=== PATIENT | female | born 1980 | race Caucasian/White ===

== ENCOUNTER 2022-09-25 09:18 | Inpatient (IN) | payer MEDICAID ==
[~2022-09-25] VITALS: Ht 160 cm; Wt 74.8 kg
[2022-09-25 09:25] VITALS: BP 122/66
[2022-09-25] MEDS ORDERED: NACL 0.9% 1,000 ML IV SCH (09:50)
[2022-09-25] MEDS ORDERED: MORPHINE SULFATE 4 MG/ML SYR IVP ONE (09:50)
[2022-09-25] MEDS ORDERED: ONDANSETRON 4 MG/2 ML VIAL IVP ONE (09:50)
[2022-09-25 10:13] LABS: BASOPHILS # (AUTO) 0.2 K/uL (0.00-0.22); BASOPHILS % (AUTO) 1.1 % (0.0-2.0); EOSINOPHILS # (AUTO) 0.2 K/uL (0-0.4); EOSINOPHILS % (AUTO) 1.6 % (0.0-4.0); HEMATOCRIT 41.4 % (36-48); HEMOGLOBIN 14.1 g/dL (12.0-16.0); LYMPHOCYTES # (AUTO) 3.3 K/uL (2.5-16.5); MEAN CORPUSCULAR HEMOGLOBIN 29 pg (27-31); MEAN CORPUSCULAR HGB CONC 34 g/dL (33-37); MEAN CORPUSCULAR VOLUME 84.9 fL (80-94); MONOCYTES # (AUTO) 0.9 K/uL (0.8-1.0); MONOCYTES % (AUTO) 6.3 % (1.7-9.3); NEUTROPHILS # (AUTO) 9.7 K/uL (1.8-7.7); PLATELET COUNT (AUTO) 382 K/uL (140-450); RED BLOOD CELL COUNT(AUTO) 4.88 MIL/uL (4.20-5.40); RED CELL DISTRIBUTION WIDTH 13.7 % (11.6-13.7); WHITE BLOOD COUNT (AUTO) 14.2 K/uL (4.8-10.8)
[2022-09-25 10:29] LABS: ANION GAP 13.1 (8-16); CARBON DIOXIDE 23.1 mmol/L (21-32); CREATININE 0.7 mg/dL (0.6-1.3); POTASSIUM 4.2 mmol/L (3.5-5.1); TOTAL BILIRUBIN 0.2 mg/dL (0.0-1.0)
[2022-09-25 11:04] LABS: APPEARANCE,URINE CLEAR (CLEAR); BILIRUBIN,URINE NEGATIVE (NEGATIVE); BLOOD, URINE 2+ (NEGATIVE); COLOR,URINE YELLOW (YELLOW); LEUKOCYTE ESTERASE ,URINE 1+ (NEGATIVE); NITRITE, URINE NEGATIVE (NEGATIVE); UGLUCOSE NEGATIVE (NEGATIVE)
[2022-09-25 11:39] LABS: RBC,URINE 0-5 /HPF (0-5)
[2022-09-25 11:40] LABS: TRICHOMONAS,URINE None Seen /HPF (None Seen); YEAST,URINE None Seen /HPF (None Seen)
[2022-09-25] MEDS ORDERED: metroNIDAZOLE 500 MG/NS PREMIX 100 ML IV ONE (11:50)
[2022-09-25] MEDS ORDERED: cefTRIAXone 1,000 MG in DEXT 5% MINI-BAG PLUS 50 ML IV ONE (11:50)
[2022-09-25] MEDS ORDERED: ACETAMINOPHEN 325 MG TAB PO PRN (12:00)
[2022-09-25] MEDS ORDERED: MAG SULF 2000 MG/WATER PREMIX 50 ML IV PRN (12:00)
[2022-09-25] MEDS ORDERED: ZOLPIDEM 10 MG TAB PO PRN (12:00)
[2022-09-25] MEDS ORDERED: MORPHINE SULFATE 2 MG/ML SYR IVP PRN (12:00)
[2022-09-25] MEDS ORDERED: DOCUSATE SODIUM 100 MG GELCAP PO PRN (12:00)
[2022-09-25] MEDS ORDERED: LORazepam 2 MG/ML VIAL IVP PRN (12:00)
[2022-09-25] MEDS ORDERED: POTASSIUM CHLORIDE 10 MEQ TABER PO PRN (12:00)
[2022-09-25] MEDS ORDERED: ONDANSETRON 4 MG/2 ML VIAL IVP PRN (12:00)
--- NOTE | 2022-09-25 12:00 | NUR ---
PT IS AAOX4, CALM AND COOPERATIVE, VERBALLY RESPONSIVE, AND SHOWS NO SIGNS OF ACUTE RESP DISTRESS. PT. IS AMBULATORY TO THE BATHROOM
[2022-09-25] MEDS ORDERED: cefTRIAXone 1,000 MG VIAL ONE (12:05)
[2022-09-25] MEDS: NACL 0.9% 1,000 ML IV SCH (13:00)
--- NOTE | 2022-09-25 14:00 | NUR ---
PT IS AAOX4, CALM AND COOPERATIVE, VERBALLY RESPONSIVE, AND SHOWS NO SIGNS OF ACUTE RESP DISTRESS. PT DENIES ANY PAIN AT THIS TIME.
[2022-09-25] MEDS ORDERED: HYDR-5080 PO (14:19)
[2022-09-25] MEDS ORDERED: ONDA-188 PO (14:19)
--- NOTE | 2022-09-25 18:13 | NUR ---
DR. BEACH AT BEDSIDE.
--- NOTE | 2022-09-25 18:25 | NUR ---
SURGEON AT THE BEDSIDE AND STATES THAT THE PATIENT WILL BE HAVING SURGERY TOMORROW MORNING. PT IS INSTRUCTED THAT SHE WILL BE NPO AT MIDNIGHT. PT VERBALIZED UNDERSTANDING.
--- NOTE | 2022-09-25 19:18 | NUR ---
REPORT GIVEN TO BLAYNE SIDDIQUI FOR CONTINUITY OF CARE.
--- NOTE | 2022-09-25 19:19 | NUR ---
ASSUMED CARE OF PT AT THIS TIME.
--- NOTE | 2022-09-25 19:36 | NUR ---
HANDOFF GIVEN TO BLAYNE MESA. TX OF CARE.
--- NOTE | 2022-09-25 20:00 | NUR ---
RESTING COMFORTABLY, VOICES NO COMPLAINTS AT THIS TIME
--- NOTE | 2022-09-25 21:35 | NUR ---
REPORT CALLED MARIELA PARKS RN
--- NOTE | 2022-09-25 21:50 | NUR ---
RECEIVED PATIENT FROM ER NURSE VIA WHEELCHAIR. PATIENT IS ALERT ORIENTES X 4. PIV 0N LEFT HAND 20 G INTACT AND PATENT. NO COMPLAIN OF PAIN AT THIS TIME
--- NOTE | 2022-09-25 21:52 | NUR ---
TO MST VIA W/C
[2022-09-26] VITALS (7 sets, daily range): BP systolic 99–123; BP diastolic 55–71
--- NOTE | 2022-09-26 | NUR ---
PATIENT SLEEPING COMFORTABLY IN BED, NO DISTRESS NOTED. NPO ORDER IN EFFECT
[2022-09-26] MEDS: NACL 0.9% 1,000 ML IV SCH ×3 (00:49→18:00)
[2022-09-26 06:02] LABS: BASOPHILS # (AUTO) 0.1 K/uL (0.00-0.22); BASOPHILS % (AUTO) 0.7 % (0.0-2.0); EOSINOPHILS # (AUTO) 0.2 K/uL (0-0.4); EOSINOPHILS % (AUTO) 2.4 % (0.0-4.0); HEMATOCRIT 35.5 % (36-48); HEMOGLOBIN 12.1 g/dL (12.0-16.0); LYMPHOCYTES # (AUTO) 2.8 K/uL (2.5-16.5); LYMPHOCYTES % (AUTO) 30.8 % (20.5-51.1); MEAN CORPUSCULAR HEMOGLOBIN 29 pg (27-31); MEAN CORPUSCULAR HGB CONC 34 g/dL (33-37); MEAN CORPUSCULAR VOLUME 84.6 fL (80-94); MONOCYTES # (AUTO) 0.7 K/uL (0.8-1.0); MONOCYTES % (AUTO) 7.8 % (1.7-9.3); NEUTROPHILS # (AUTO) 5.3 K/uL (1.8-7.7); NEUTROPHILS % (AUTO) 58.3 % (42.2-75.2); PLATELET COUNT (AUTO) 323 K/uL (140-450); RED CELL DISTRIBUTION WIDTH 13.7 % (11.6-13.7); WHITE BLOOD COUNT (AUTO) 9.1 K/uL (4.8-10.8)
[2022-09-26 06:20] LABS: ANION GAP 12.3 (8-16); CARBON DIOXIDE 24.8 mmol/L (21-32); CREATININE 0.7 mg/dL (0.6-1.3); POTASSIUM 4.1 mmol/L (3.5-5.1)
--- NOTE | 2022-09-26 07:05 | NUR ---
PT. TRANSPORTED TO OR VIA GURNEY FOR PROCEDURE.
--- NOTE | 2022-09-26 07:14 | NUR ---
ENDORSED PT TO AM NURSE FOR CONTINUITY OF CARE. PT IS STABLE
[2022-09-26] MEDS ORDERED: BUPIVACAINE-MPF 0.25% 30 ML VIAL INJ ONE (07:19)
[2022-09-26] MEDS ORDERED: LIDOCAINE 1% 500 MG/50 ML VIAL ONE (07:19)
[2022-09-26] MEDS ORDERED: BUPIVACAINE-MPF/EPI 0.5% 30 ML VIAL INJ ONE (07:20)
[2022-09-26] MEDS ORDERED: SEVOFLURANE 250 ML BTL INH ONE (07:33)
[2022-09-26] MEDS ORDERED: fentaNYL citrate 0.05 MG/ML VIAL ONE (07:57)
--- NOTE | 2022-09-26 08:00 | NUR ---
Patient's Plan of Care was discussed and reviewed with CRIMINAL COURT JUDGE:
[2022-09-26] MEDS ORDERED: ONDANSETRON 4 MG/2 ML VIAL ONE (08:22)
[2022-09-26] MEDS ORDERED: PROPOFOL 200 MG/20 ML VIAL IV ONE (08:22)
[2022-09-26] MEDS ORDERED: ROCURONIUM 50 MG/5 ML VIAL IV ONE (08:22)
[2022-09-26] MEDS ORDERED: ceFAZolin 1,000 MG VIAL ONE ×2 (08:22)
[2022-09-26] MEDS ORDERED: KETOROLAC 30 MG/ML VIAL ONE (08:22)
--- NOTE | 2022-09-26 08:50 | NUR ---
PATIENT HAS BEEN SCREENED AND CATEGORIZED MODERATE NUTRITION RISK. PATIENT WILL BE SEEN WITHIN 3-5 DAYS OF ADMISSION. 09/25/22-09/30/[address]
[2022-09-26] MEDS ORDERED: NEOSTIGMINE 1:1000 10 MG/10 ML VIAL ONE (09:06)
[2022-09-26] MEDS ORDERED: GLYCOPYRROLATE 0.2 MG/ML VIAL ONE ×5 (09:06)
[2022-09-26] MEDS: HYDROmorphone 1 MG/ML AMP IVP PRN ×4 (09:15→09:45)
[2022-09-26] MEDS ORDERED: METOCLOPRAMIDE 10 MG/2 ML INJ VIAL IVP PRN (09:19)
[2022-09-26] MEDS ORDERED: HYDROmorphone PFS 2 MG/ML SYR ONE (09:19)
[2022-09-26] MEDS ORDERED: hydrALAZINE 20 MG/ML VIAL IVP PRN (09:19)
[2022-09-26] MEDS ORDERED: LABETALOL 20 MG/4 ML VIAL IVP PRN (09:19)
--- NOTE | 2022-09-26 10:00 | NUR ---
BACK FROM OR VIA GURNEY. ABD INCISION SITE INTACT WITH NESTOR DRAIN ON RUQ. KEEP COMFORTABLE ON BED. EXPLAINED DIAGNOSIS, POST-OP CARE, PAIN MANAGEMENT TEACHING, USE OF CALL LIGHT, BED, TV, BATHROOM VERBALIZED UNDERSTANDING. CALL LIGHT WITHIN REACH. WILL MONITOR.
--- NOTE | 2022-09-26 10:05 | NUR ---
USED BEDPAN AND VOIDED WITH 150 ML. CLEAR YELLOW URINE.
[2022-09-26] MEDS: LACTATED RINGERS 1,000 ML IV SCH ×2 (10:35→19:20)
--- NOTE | 2022-09-26 12:30 | NUR ---
WENT TO BATHROOM WITHOUT ASSISTANCE. TOLERATED WELL. ASK TO CALL NURSE IF NEEDS HELP. VERBALIZED UNDERSTANDING.
--- NOTE | 2022-09-26 14:20 | NUR ---
WENT TO BATHROOM WITHOUT ASSISTANCE. TOLERATED WELL.
[2022-09-26] MEDS: HYDROcodone/APAP 5/325 MG 1 TAB TAB PO PRN ×2 (14:40→20:03)
--- NOTE | 2022-09-26 16:00 | NUR ---
EMPTIED NESTOR DRAIN WITH 55 ML. OUTPUT.
--- NOTE | 2022-09-26 19:10 | NUR ---
REPORT GIVEN TO HARD CANDY SPINNER NURSE. IVF INFUSING WELL. IN STABLE CONDITION. ALSO ENDORSED ABOUT IVF LACTATED RINGERS AND ROCEPHIN IVPB.
--- NOTE | 2022-09-26 19:20 | NUR ---
RECEIVED PT FROM AM NURSE FOR CONTINUITY OF CARE. PT IS STABLE
--- NOTE | 2022-09-26 21:00 | NUR ---
PATIENT COMPLAINED OF ABDOMINAL PAIN SURGICAL SITE. PATIENT IS S/P LAPAROSCOPIC CHOLECYSTECTOMY.
--- NOTE | 2022-09-27 01:00 | NUR ---
PATIENT ASLEEP, NO DISTRESS NOTED
[2022-09-27] MEDS: HYDROcodone/APAP 5/325 MG 1 TAB TAB PO PRN (02:27)
[2022-09-27] MEDS: HYDROmorphone 1 MG/ML AMP IVP PRN ×3 (02:56→17:56)
[2022-09-27] MEDS: NACL 0.9% 1,000 ML IV SCH (03:54)
[2022-09-27 04:00] VITALS: BP 106/67
[2022-09-27] MEDS: LACTATED RINGERS 1,000 ML IV SCH (05:20)
[2022-09-27 07:15] LABS: BASOPHILS # (AUTO) 0.1 K/uL (0.00-0.22); BASOPHILS % (AUTO) 0.8 % (0.0-2.0); EOSINOPHILS # (AUTO) 0.1 K/uL (0-0.4); EOSINOPHILS % (AUTO) 0.7 % (0.0-4.0); HEMATOCRIT 34.1 % (36-48); HEMOGLOBIN 11.6 g/dL (12.0-16.0); LYMPHOCYTES # (AUTO) 2.8 K/uL (2.5-16.5); MEAN CORPUSCULAR HEMOGLOBIN 29 pg (27-31); MEAN CORPUSCULAR HGB CONC 34 g/dL (33-37); MEAN CORPUSCULAR VOLUME 85.1 fL (80-94); MONOCYTES % (AUTO) 7.9 % (1.7-9.3); NEUTROPHILS # (AUTO) 8.7 K/uL (1.8-7.7); NEUTROPHILS % (AUTO) 68.6 % (42.2-75.2); PLATELET COUNT (AUTO) 331 K/uL (140-450); RED CELL DISTRIBUTION WIDTH 13.5 % (11.6-13.7); WHITE BLOOD COUNT (AUTO) 12.7 K/uL (4.8-10.8)
[2022-09-27 07:27] LABS: ANION GAP 11.9 (8-16); CARBON DIOXIDE 24.9 mmol/L (21-32); CREATININE 0.7 mg/dL (0.6-1.3); POTASSIUM 3.8 mmol/L (3.5-5.1)
--- NOTE | 2022-09-27 07:30 | NUR ---
RECEIVED REPORT FROM SCREEN MAKER NURSE FOR CONTINUITY OF CARE.
[2022-09-27 08:00] VITALS: BP 116/71
--- NOTE | 2022-09-27 11:30 | NUR ---
DC PLANNING SW MET W/ PT AT BEDSIDE TO COMPLETE ASSESSMENT, PT PRIMARILY KAZAKH SPEAKING THEREFORE, HARDSCAPE FOREMAN UTILIZED; [id number]/ZULAY. PT RESIDES IN A GROUND FLOOR APT WITH HER FAMILY (PARTNER, 2 ADULT CHILDREN, 2 MINOR CHILDREN) [place] [address] [place] [id number]. PT IDENTIFIED [employer] [employer], PARTNER, EMERGENCY CONTACT AND DECLINED TO ADD ADDITIONAL EC. PT DENIES AD IN PLACE AND DECLINED ADV OFFERED BY SW. PT REPORTS MEETING W/ PCP. DR. AYALA NEEDED, LAST VISIT; 6+MONTHS AGO. PT REPORTS MEDICATION COMPLIANCE AND REPORTS RECEIVING MEDICATION FROM [facility] IN [place], WHEN NEEDED. PT REPORTS BEING INDEPENDENT IN ALL ACTIVITIES AND DENIES USE OF DME. PT DENIES MH/GARCIAS HX. PT REPORTS HX OF PRE-DIABETES AND REPORTS WORKING W/ PCP CLOSELY TO MONITOR. PT DENIES HX OF DIABETES, DIALYSIS, HH, SNF AND HOSPICE CARE. PT REPORTS DC PLAN IS TO RETURN HOME W/PARTNER PROVIDING TRANSPORTATION, WHEN MEDICALLY STABLE. SW INQUIRED ON RESOURCES NEEDED, PT DECLINED. Addendum: 09/28/22 at 0833 by Lashaun OSUNA Amended: Links added.
[2022-09-27 16:00] VITALS: BP 120/73
--- NOTE | 2022-09-27 16:16 | NUR ---
REMOVED 30CC OF SANGUINEOUS DISCHARGE FROM NESTOR DRAIN.
--- NOTE | 2022-09-27 19:15 | NUR ---
ENDORSED PT TO SUPERVISORY IT SPECIALIST NURSE FOR CONTINUITY OF CARE. PT IN STABLE CONDITION.
--- NOTE | 2022-09-27 19:16 | NUR ---
RECEIVED REPORT FROM DAY SHIFT NURSE CAS FOR CONTINUITY OF CARE. PT AWAKE SITTING AT BEDSIDE CHAIR WITH FAMILY MEMBER. A&O4, ABLE TO MAKE NEEDS KNOWN. RESPIRATIONS EVEN AND UNLABORED ON RA. S/P LAP GONZÁLEZ 09/26/21 NOTED 3 SURGICAL INCISION SITES WITH 1X NESTOR DRAIN. PT AMBULATES WITH FAMILY MEMBER AT THE [address]. CALL LIGHT WITHIN REACH. SAFETY PRECAUTIONS IN PLACE.
[2022-09-27 20:00] VITALS: BP 117/77
--- NOTE | 2022-09-28 00:59 | NUR ---
DID ROUNDS. PT SLEEPING. BREATHING EVEN AND UNLABORED. NO DISTRESS NOTED. SAFETY PRECAUTIONS IN PLACE.
[2022-09-28] MEDS: HYDROmorphone 1 MG/ML AMP IVP PRN ×2 (01:27→09:30)
--- NOTE | 2022-09-28 01:27 | NUR ---
PATIENT GIVEN PRN DILAUDID FOR C/O 9/10 PAIN ON ABDOMEN. BP 112/55, P 75. WILL CONTINUE TO MONITOR THE PATIENT.
[2022-09-28 04:00] VITALS: BP 120/78
--- NOTE | 2022-09-28 04:56 | NUR ---
DID MORNING CARE. DRAINED 20CC OF SEROSANGUINEOUS DRAINAGE. PT NO COMPLAINTS OF PAIN AT THIS TIME. NO DISTRESS NOTED. SAFETY PRECAUTIONS IN PLACE.
[2022-09-28 06:59] LABS: BASOPHILS # (AUTO) 0.1 K/uL (0.00-0.22); BASOPHILS % (AUTO) 0.4 % (0.0-2.0); EOSINOPHILS # (AUTO) 0.2 K/uL (0-0.4); EOSINOPHILS % (AUTO) 1.6 % (0.0-4.0); HEMATOCRIT 33.9 % (36-48); HEMOGLOBIN 11.5 g/dL (12.0-16.0); LYMPHOCYTES # (AUTO) 3.2 K/uL (2.5-16.5); LYMPHOCYTES % (AUTO) 24.4 % (20.5-51.1); MEAN CORPUSCULAR HEMOGLOBIN 29 pg (27-31); MEAN CORPUSCULAR HGB CONC 34 g/dL (33-37); MEAN CORPUSCULAR VOLUME 84.5 fL (80-94); MONOCYTES # (AUTO) 1.1 K/uL (0.8-1.0); MONOCYTES % (AUTO) 8.3 % (1.7-9.3); NEUTROPHILS # (AUTO) 8.4 K/uL (1.8-7.7); NEUTROPHILS % (AUTO) 65.3 % (42.2-75.2); PLATELET COUNT (AUTO) 310 K/uL (140-450); RED BLOOD CELL COUNT(AUTO) 4.01 MIL/uL (4.20-5.40); RED CELL DISTRIBUTION WIDTH 13.7 % (11.6-13.7); WHITE BLOOD COUNT (AUTO) 12.9 K/uL (4.8-10.8)
--- NOTE | 2022-09-28 07:15 | NUR ---
ASSUMED CONTINUITY OF CARE. INITIAL ASSESSMENT DONE. EXPLAINED DIAGNOSIS, PLAN OF CARE, PAIN MANAGEMENT TEACHING, USE OF CALL LIGHT/BED/TV/BATHROOM. VERBALIZED UNDERSTANDING. CALL LIGHT WITHIN REACH.
--- NOTE | 2022-09-28 07:16 | NUR ---
ENDORSED PT TO DAY SHIFT NURSE GRAHAM FOR CONTINUITY OF CARE. ALL NEEDS MET THROUGHOUT SHIFT. PT IS IN STABLE CONDITION.
[2022-09-28 08:00] VITALS: BP 112/74
--- NOTE | 2022-09-28 08:00 | NUR ---
Patient's Plan of Care was discussed and reviewed with CRADLE PLACER: GRAHAM SHERMAN
[2022-09-28 08:36] LABS: ANION GAP 10.8 (8-16); CARBON DIOXIDE 25.9 mmol/L (21-32); CREATININE 0.7 mg/dL (0.6-1.3); POTASSIUM 3.7 mmol/L (3.5-5.1)
[2022-09-28] MEDS ORDERED: IBUP-2213 PO (09:20)
[2022-09-28] MEDS ORDERED: HYDR-5080 PO (09:20)
[2022-09-28] MEDS ORDERED: DOCUSATE SODIUM 100 MG GELCAP PO SCH (10:30)
[2022-09-28 11:15] VITALS: BP 122/71
[2022-09-28] MEDS ORDERED: DOCU-299 PO (11:58)
[2022-09-28 12:00] VITALS: BP 141/94
--- NOTE | 2022-09-28 13:20 | NUR ---
COLLINS BOJORQUEZ CAME AND D/C NESTOR DRAIN ON BEDSIDE. TOLERATED WELL.
[2022-09-28 13:57] LABS: ALBUMIN 3.5 g/dL (3.4-5.0); TOTAL BILIRUBIN 0.3 mg/dL (0.0-1.0)
--- NOTE | 2022-09-28 14:48 | NUR ---
PAGED DR. COLLIER REGARDING PT. D/C ORDER.
[2022-09-28 16:00] VITALS: BP 109/60
--- NOTE | 2022-09-28 17:00 | NUR ---
D/C HOME VIA WHEELCHAIR. NO C/O PAIN. IN STABLE CONDITION.
== END 2022-09-28 17:00 | disposition home or self-care (01) | DRG 710 ==
LOC: MED 09:18 → EDSEX 09:18 → MTU 12:00
PROVIDERS: ADMIT Family Medicine; ATTEND Family Medicine
PROC: 0DNW4ZZ Release Peritoneum, Percutaneous Endoscopic Approach (ICD-10-PCS; 2022-09-26)
PROC: 0FT44ZZ Resection of Gallbladder, Percutaneous Endoscopic Approach (ICD-10-PCS; principal; 2022-09-26 07:30)
DX: A41.9 Sepsis, unspecified organism (principal); K81.0 Acute cholecystitis; N39.0 Urinary tract infection, site not specified; B96.20 Unspecified Escherichia coli [E. coli] as the cause of diseases classified elsewhere; Z20.822 Contact with and (suspected) exposure to COVID-19; Z98.51 Tubal ligation status; R71.0 Precipitous drop in hematocrit
CPT/HCPCS: 36415; 71045; 76705; 80048; 80053; 80076; 81001; 81025; 82374; 83690; 83735; 85025; 85730; 87040; 87081; 87086; 88304; 93005; 96374; 96375; 99285; C1887; J0690; J0696; J1170; J1885; J2001; J2270; J2405; J2704; J2710; J3010; J3475; J3490; J7030; J7060; Q0092

== ENCOUNTER 2023-10-14 13:51 | Emergency (ER) | payer MEDICAID, OTHER ==
[~2023-10-14] VITALS: Ht 154.9 cm; Wt 75.3 kg
[~2023-10-14 13:51] MED LIST: ACET-503 PO; CEPH-588 PO; DOCU-299 PO; DOCU283N RC; HYDR-5080 PO; IBUP-2213 PO; POLY17PD PO
[2023-10-14 13:53] VITALS: BP 124/82; PULSE 84; TEMP 98.3; O2SAT 97
[2023-10-14] MEDS ORDERED: GUAI237L61 PO (14:14)
[2023-10-14] MEDS ORDERED: ACET-10509 PO (14:14)
== END 2023-10-14 14:34 | disposition home or self-care (01) ==
LOC: MED 13:51
DX: J06.9 Acute upper respiratory infection, unspecified (principal); Z20.822 Contact with and (suspected) exposure to COVID-19; K21.9 Gastro-esophageal reflux disease without esophagitis; Z79.899 Other long term (current) drug therapy
CPT/HCPCS: 81002; 81025; 99283

== ENCOUNTER 2024-06-18 18:03 | Emergency (ER) | payer OTHER ==
[~2024-06-18] VITALS: Ht 152.4 cm; Wt 68.5 kg
[~2024-06-18 18:03] MED LIST changes: +ACET500T99 PO; +GUAI237L61 PO
[2024-06-18 18:35] VITALS: BP 113/58; PULSE 78; RESP 18; TEMP 98.2; O2SAT 99
[2024-06-18] MEDS ORDERED: METH4TAB1 PO (18:58)
[2024-06-18] MEDS: predniSONE 20 MG TAB PO ONE (19:12)
== END 2024-06-18 19:13 | disposition home or self-care (01) ==
LOC: MED 18:03
DX: J06.9 Acute upper respiratory infection, unspecified (principal); B97.89 Other viral agents as the cause of diseases classified elsewhere; Z79.899 Other long term (current) drug therapy
CPT/HCPCS: 99283; J7512

== ENCOUNTER 2024-06-20 15:07 | Emergency (ER) | payer OTHER ==
[~2024-06-20] VITALS: Ht 157.5 cm; Wt 68.7 kg
[~2024-06-20 15:07] MED LIST changes: +METH4TAB1 PO
[2024-06-20 15:25] VITALS: BP 30/81; PULSE 63; RESP 18; TEMP 97.6; O2SAT 96
[2024-06-20] MEDS: DEXAMETHASONE 10 MG/ML VIAL IM ONE (17:03)
[2024-06-20] MEDS: ALBUTEROL SULFATE/IPRATROPIU 3 ML SOL IH ONE (17:07)
[2024-06-20 17:08] VITALS: PULSE 52; RESP 16; O2SAT 98
[2024-06-20] MEDS ORDERED: ALBU0.0912 INH (17:31)
[2024-06-20] MEDS ORDERED: BENZ100C6 PO (17:31)
[2024-06-20 18:28] LABS: FLU A ANTIGEN negative (NEGATIVE); FLU B ANTIGEN NEGATIVE (NEGATIVE)
== END 2024-06-20 17:45 | disposition home or self-care (01) ==
LOC: MED 15:07
DX: J06.9 Acute upper respiratory infection, unspecified (principal); B97.89 Other viral agents as the cause of diseases classified elsewhere; Z20.822 Contact with and (suspected) exposure to COVID-19; Z79.899 Other long term (current) drug therapy
CPT/HCPCS: 71045; 87426; 87804; 94640; 96372; 99284; J1100